=== PATIENT | female | born 2000 | race Caucasian/White ===

== ENCOUNTER → 2022-01-14 15:13 | Outpatient (CLI) | payer OTHER, SELFPAY ==
--- NOTE | ~2022-01-14 | XR_ITS ---
XR wrist RT min 3V DATE: 01/14/2022 15:32 INDICATION: Right wrist pain. Fell off of a skateboard 2 months ago. TECHNIQUE: 3 views COMPARISON: None FINDINGS: No fracture or dislocation, periosteal reaction or bone destruction, joint space narrowing, erosive change or chondrocalcinosis. IMPRESSION: Negative Reviewed, dictated and finalized at location B. IMPRESSION: Negative
--- NOTE | ~2022-01-14 | XR_ITS ---
XR lumbar spine min 4V DATE: 01/14/2022 15:32 INDICATION: Low back pain TECHNIQUE: AP, lateral, bilateral oblique and coned lateral lumbosacral views COMPARISON: None FINDINGS: There is mild levoscoliosis. No fracture, spondylolysis or spondylolisthesis. No bone sarwat truction. The lumbar pedicles are intact. Lumbar and lumbosacral interspaces are well preserved. T he sacroiliac joints are intact. IMPRESSION: Mild levoscoliosis Reviewed, dictated and finalized at location B. IMPRESSION: Mild levoscoliosis
== END ==
PROVIDERS: PCP Physician Assistant; Visit Provider Physician Assistant
DX: M25.531 Pain in right wrist (principal); M54.50 Low back pain, unspecified; M41.86 Other forms of scoliosis, lumbar region
CPT/HCPCS: 72110; 73110

== ENCOUNTER 2023-01-04 15:20 | Outpatient (CLI) | payer OTHER, SELFPAY ==
[2023-01-04 18:28] LABS: Kit Draw Collected
== END 2023-01-04 15:21 | disposition home or self-care (01) ==
PROVIDERS: PCP Family Medicine; Visit Provider Physician Assistant
DX: Z00.00 Encounter for general adult medical examination without abnormal findings (principal); F41.9 Anxiety disorder, unspecified; R51.9 Headache, unspecified
CPT/HCPCS: 36415